=== PATIENT | female | born 1980 | race Caucasian/White ===

== ENCOUNTER 2022-10-19 21:29 | Emergency (ER) | payer BC ==
[~2022-10-19] VITALS: Ht 165.1 cm; Wt 59.0 kg
[2022-10-19] MEDS ORDERED: FAMOTIDINE 20MG/2ML VIAL IV ONE (21:45)
[2022-10-19] MEDS ORDERED: SODIUM CHLORIDE 0.9% 1,000 ML IV ONE (21:45)
[2022-10-19 22:06] LABS: BASOPHILS % 0.2 % (0.0-2.0); EOSINOPHILS % 0.9 % (0.0-5.0); HEMOGLOBIN. 13.8 g/dL (12.0-16.0); LYMPHOCYTES % 20.4 % (20.0-50.0); MEAN CORPUSCULAR HEMOGLOBIN 30.5 pg (28.0-32.0); MEAN CORPUSCULAR VOLUME 90.2 fL (81.0-99.0); MEAN PLATELET VOLUME 8.6 fl (7.4-10.4); MONOCYTES % 5.9 % (2.0-8.0); NEUTROPHILS % 72.6 % (40.0-76.0); PLATELET 349 x1000/uL (130-400); RED BLOOD CELL COUNT 4.54 mill/uL (4.2-5.4); RED CELL DISTRIBUTION WIDTH 13.2 % (11.6-14.6)
[2022-10-19 22:11] LABS: CHLORIDE 110 mEq/L (98-107)
[2022-10-19 22:12] LABS: INR 1.1; PROTHROMBIN TIME 11.3 sec (9.6-11.0)
[2022-10-19 22:19] LABS: ETHANOL BLOOD < 10 mg/dL
[2022-10-19 22:36] LABS: HCG SCREEN NEGATIVE
[2022-10-20] VITALS: BP 91/56
[2022-10-20] MEDS ORDERED: P20 MT (00:16)
[2022-10-20] MEDS ORDERED: FAMO-135 MT (00:16)
[2022-10-20] MEDS ORDERED: EPIN0.3P3 IM (00:16)
[2022-10-20] MEDS ORDERED: DIPH25CA83 MT (00:16)
== END 2022-10-20 00:25 | disposition home or self-care (01) ==
LOC: ER 21:29
DX: T78.2XXA Anaphylactic shock, unspecified, initial encounter (principal); X58.XXXA Exposure to other specified factors, initial encounter; Z79.899 Other long term (current) drug therapy
CPT/HCPCS: 36415; 71045; 80053; 80320; 83690; 84703; 85025; 85610; 96361; 96374; 99284; J3490; J7030; Z7610; G0480